=== PATIENT | female | born 1985 | race Caucasian/White ===

== ENCOUNTER 2016-10-14 17:05 | Emergency (ER) | payer OTHER, BC ==
[~2016-10-14] VITALS: Ht 154.9 cm; Wt 120.0 kg
[~2016-10-14 17:05] MED LIST: Z.0.NO CURRENT MEDS
[2016-10-14 17:07] VITALS: BP 138/101; PULSE 79; RESP 16; TEMP 98.1; O2SAT 99
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
[2016-10-14] MEDS ORDERED: ORPH100T99 PO (18:32)
[2016-10-14] MEDS ORDERED: IBUP-232 PO (18:32)
== END 2016-10-14 18:55 | disposition home or self-care (01) ==
LOC: PHEFT 17:05
DX: S39.012A Strain of muscle, fascia and tendon of lower back, initial encounter (principal); M54.2 Cervicalgia; V43.52XA Car driver injured in collision with other type car in traffic accident, initial encounter; Y92.410 Unspecified street and highway as the place of occurrence of the external cause
CPT/HCPCS: 72072; 99284

== ENCOUNTER 2017-09-30 20:09 | Emergency (ER) | payer BC, OTHER ==
[~2017-09-30] VITALS: Ht 157.5 cm; Wt 107.1 kg
[~2017-09-30 20:09] MED LIST changes: +IBUP-232 PO; +ORPH100T2 PO; -Z.0.NO CURRENT MEDS
[2017-09-30 20:28] VITALS: BP 142/72; PULSE 77; RESP 16; TEMP 98.9; O2SAT 98
[2017-09-30] MEDS ORDERED: ACETAMINOPHEN/HYDROcodone 325 MG/5 MG TAB PO ONE (22:15)
[2017-09-30] MEDS ORDERED: HYDR-3580 PO (22:16)
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
[2017-09-30 22:23] VITALS: BP 143/79; PULSE 76; RESP 18; O2SAT 100
[2017-09-30 22:51] VITALS: RESP 18
== END 2017-09-30 22:56 | disposition home or self-care (01) ==
LOC: PHEFT 20:09
DX: S29.012A Strain of muscle and tendon of back wall of thorax, initial encounter (principal); M25.511 Pain in right shoulder; M79.601 Pain in right arm; M79.641 Pain in right hand; V48.6XXA Car passenger injured in noncollision transport accident in traffic accident, initial encounter; Y92.410 Unspecified street and highway as the place of occurrence of the external cause
CPT/HCPCS: 99283